=== PATIENT | male | born 1960 | race Hispanic/Latino ===

== ENCOUNTER 2020-06-06 00:23 | Inpatient (IN) | payer OTHER ==
[2020-06-06] VITALS (12 sets, daily range): BP systolic 114–153; BP diastolic 60–92
[~2020-06-06] VITALS: Ht 172.7 cm; Wt 87.2 kg
[~2020-06-06 00:23] MED LIST: ZOCOR20 M1 PO
--- NOTE | 2020-06-06 00:23 | NUR ---
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 TOOK NO MEDS TONIGHT
[2020-06-06 01:19] LABS: HEMATOCRIT 41.6 % (39.0-50.0); HEMOGLOBIN 13.9 g/dl (14.0-18.0); IMMATURE GRANULOCYTES 0.5 % (0.0-5.0); MEAN CELL VOLUME 97.4 fL CALC (80.0-100.0); MEAN CORPUSCULAR HGB 32.6 pG CALC (26.0-32.0); MEAN CORPUSCULAR HGB CONC 33.4 g/dL CAL (32.0-36.0); NEUT# 6.84 thou/uL (1.82-7.42); RED BLOOD COUNT 4.27 mill/uL (4.70-6.10); RED CELL DISTRI WIDTH 13.2 % (11.5-15.5)
[2020-06-06 01:41] LABS: INTERNATIONAL NORMALIZED RATIO 0.9 RATIO (0.7-1.3); PROTHROMBIN TIME 9.1 SECONDS (9.0-12.5)
[2020-06-06 01:47] LABS: ALBUMIN 3.7 g/dL (3.2-5.0); ANION GAP 14 (6-22 (CALC)); BILIRUBIN, TOTAL 0.8 mg/dL (0.0-1.4); BUN 14 mg/dL (9-20); BUN/CREATININE RATIO 11 (12-20 (CALC)); CARBON DIOXIDE 23 mmol/l (22-30); CHLORIDE 100 mmol/l (95-108); CREATININE 1.3 mg/dL (0.7-1.3); GFR 56 ML/MIN (>=60 (CALC)); GFR FOR AFR.AMER. > 60 ML/MIN (>=60 (CALC)); POTASSIUM 4.5 mmol/l (3.5-5.1); SODIUM 133 mmol/l (137-146)
--- NOTE | 2020-06-06 01:48 | NUR ---
MEDICATED FOR FEVER COUGH AND SOB
[2020-06-06 01:50] LABS: ALKALINE PHOSPHATASE 128 u/l (38-126); SGOT/AST 175 u/l (17-59)
--- NOTE | 2020-06-06 02:41 | NUR ---
FEVER IS RESOLVING SR NO ECTOPY NO DYSPNEA.
--- NOTE | 2020-06-06 03:31 | NUR ---
FEEVER HAS RESOLVED.REG RATE UNLABORED RESP EFFORT NO COUGH NO CONGESTION
--- NOTE | 2020-06-06 04:30 | NUR ---
[T TELLS ME HE BREATHES WITH GREATER EASE.SR NO SWEATS W/D SKIN IVPB ABX COMPLETED
--- NOTE | 2020-06-06 05:24 | NUR ---
PT TRANSFERRED TO HOSP BED.W//D SKIN SR NO TACHYCAARDIA NO ST CHANGES.
--- NOTE | 2020-06-06 05:45 | NUR ---
PT PRONATED IN BED SR NO SOB/DYSPNEA.NO COUGH.
--- NOTE | 2020-06-06 10:00 | NUR ---
recieved for care. Sleeping.
--- NOTE | 2020-06-06 11:00 | NUR ---
PATIENT SITTING AT BEDSIDE STATES HE FEELS IF SOMETHING IS CAUGHT IN HIS THROAT AND IS UNABLE TO BREATH. O2 VIA NC AT 3LPM. SATURATION 93%.
--- NOTE | 2020-06-06 11:00 | NUR ---
patient awake,seated at bedside. c/o THAT HE IS UNABLE TO BREATH. O2 VIA NC CONTINUES AT 3LPM.PATIENT COUGHING. REASSURANCE GIVEN. V/S STABLE.
--- NOTE | 2020-06-06 11:10 | NUR ---
PATIENT ENCOURAGED TO DEEP BREATH AND COUGH. RESPIRATORY CALLED TO EVALUATE.
--- NOTE | 2020-06-06 11:20 | NUR ---
RT CALLED TO COME TO BEDSIDE TO EVALUATE.
--- NOTE | 2020-06-06 11:30 | NUR ---
RT AT BEDSIDE TO EVALUATE.
--- NOTE | 2020-06-06 11:30 | NUR ---
RT AT BEDSIDE.
--- NOTE | 2020-06-06 12:42 | NUR ---
PATIENT DOING WELL. EATING MEAL TRAY. LESS ANXIOUS. SATURATIONS LOW 90'S.
--- NOTE | 2020-06-06 13:43 | NUR ---
PATIENT RESTING QUIETLY, NO C/O AT THIS TIME.
--- NOTE | 2020-06-06 14:49 | NUR ---
PATIENTS TO ENTRANCE FOR UPDATE AND TO DROP OFF PERSONAL EFFECTS.
--- NOTE | 2020-06-06 16:10 | NUR ---
RECIEVED REPORT FROM MIGDALIA AGUAYO.
--- NOTE | 2020-06-06 16:12 | NUR ---
PT ARRIVED TO [facility] ROOM 283 VIA BED ACCOMPAINED BY ER STAFF. PT AMBULATING TO BATHROOM WITH STEADY AGAIT.
--- NOTE | 2020-06-06 16:15 | NUR ---
REPORT TO MARIANELA NURSE IN SBAR FORMAT. TO [facility] ROOM 283 VIA BED. STABLE UPON ARRIVAL.
--- NOTE | 2020-06-06 16:19 | NUR ---
REPORT TO MARIANELA NURSE IN SBAR FORMAT. TRANSFERRED TO FLOOR ROOM 283 VIA BED, STABLE UPON ARRIVAL, IV INTACT
--- NOTE | 2020-06-06 16:20 | NUR ---
INTRODUCED SELF TO PT AND DISCUSSED POC.PT IS A/O X3. ASSESSMENT AND VITAKLS COMPLETED. BP , HR, O2 86 % ON 3L NC. INCREASED OXYGEN TO 13L HIGH FLOW, SAT 91-93%. RESPIRATIONS ARE SHALLOW. LUNG SOUNDS ARE DIMINISHED. HEART RHYTHM IS NORMAL. BOWEL SOUNDS ARE ACTIVE. RADIAL AND PEDAL PULSES ARE STRONG. #18 IN LAC FLUSHED, SITE APPEARS HEALTHY AND PATENT. SKIN IS COOL AND INTACT WITH NO BREAKDOWN NEED. I.S AT BEDSIDE, PT EDUCATED ON USE. PT VERBLAIZED UNDERSTANDING. PT DENIES OF ANY ALLERGIES OR PAST MEDICAL HISTORY. ALLERGY BAND AND FALL RISK BAND IN PLACE. PT ORIENETED TO ROOM AND CALL LIGHT SYSTEM. PT VERBALIZED UNDERSTANDING. ALL SAFETY PRECAUTIONS ARE IN PLACE WIHT CALL LIGHT IN REACH. WILL CONTINUE TO MONITOR.
[2020-06-06 16:38] LABS: URINE BILIRUBIN - DIPSTICK NEGATIVE (NEGATIVE); URINE BLOOD DIPSTICK NEGATIVE (NEGATIVE); URINE COLOR ORANGE; URINE GLUCOSE - DIPSTICK NEGATIVE (NEGATIVE); URINE KETONE NEGATIVE (NEGATIVE); URINE LEUK ESTERASE NEGATIVE (NEGATIVE); URINE NITRITE - DIPSTICK NEGATIVE (Negative); URINE PROTEIN - DIPSTICK 100 mg/dL (NEG-TRACE); URINE SPECIFIC GRAVITY >=1.030
--- NOTE | 2020-06-06 16:40 | NUR ---
RT CALLED TO ASSESS PT O2 STATUS
[2020-06-06 17:06] LABS: URINE BACTERIA FEW hpf; URINE RBC 0-2 RBC/hpf (0-5); URINE SQUAMOUS EPITHELIAL CELL FEW EPI/hpf (0-FEW)
--- NOTE | 2020-06-06 17:10 | NUR ---
RT AT BEDSIDE
--- NOTE | 2020-06-06 17:32 | NUR ---
DR JON CALLED ABOUT PT O2 REQUIREMENT. ORDERED TO PRON PT FOR 30 MIN AND MONITOR O2 SAT.
--- NOTE | 2020-06-06 18:06 | NUR ---
PT PLACED IN PRONE POSITION. OXYGEN DECREASED TO 7L HIGH FLOW NC O2 SAT 95%.PT STATES " IT FEELS A LITTLE BETTER". DR JON NOTFIED OF OXYGEN STATUS. NEW ORDER FOR ROBITUSSIN TO ASSIST WITH COUGH. ENCOURAGED PT TO CALL IF FEELING INCREASED SOB OR UNABLE TO LAY PRONE. PT VERBALIZED UNDERSTANDING. ALL SAEFTY PRECAUTIONS ARE IN PLACE WITH CALL LIGHT IN REACH. WILL CONTINUE TO MONITOR.
--- NOTE | 2020-06-06 20:00 | NUR ---
PT STATES " I CAN NOT DO THIS ANY MORE." PT REFUSES TO PRONE. PT PLACED IN HIGH FOLWERS POSITION, O2 SAT 93% ON 14L HIGH FLOW NC. NOTIFIED. TO BE TRANSFERED TO ICU.
--- NOTE | 2020-06-06 20:14 | NUR ---
PT TRANSFERED TO ICU BED 5. REPORT GIVEN TO KATHLEEN Bruce RN.
--- NOTE | 2020-06-06 20:15 | NUR ---
REPORT RECEIVED FROM MARIANELA ALEXANDER. CARE ASSUMED.
--- NOTE | 2020-06-06 20:45 | NUR ---
PT RESTING IN BED AWAKE. PT IS ALERT AND ORIENTED X3. SHIFT ASSESSMENT COMPLETED AT THIS TIME. IV PATENT X1. PT DOES VERBALIZE BEING SCARED. REASSURANCE PROVIDED. PT ON VAPOTHERM INITIATED BY RT. CALL LIGHT IN REACH. WILL CONTINUE TO MOITOR.
--- NOTE | 2020-06-06 21:30 | NUR ---
S/O ON PHONE ONLY UPPER SORBIAN SPEAKING. TRANSFERRED CALL INTO PT ROOM WITH PORTABLE. REASSURANCE PROVIDED.
--- NOTE | 2020-06-06 22:15 | NUR ---
PT RESTING IN BED WATCHING TV. VSS ON MONITOR. CALL LIGHT IN REACH. WILL CONTINUE TO NONITOR.
--- NOTE | 2020-06-06 23:50 | NUR ---
PT PROJECT ENGINEER LIGHT STATING THAT HE IS UNABLE TO BREATHE O2 SATS 94% ON VAPOTHERM. PT IS TACHYPNEIC AND DIAPHORETIC. PT STATES THAT HE IS HOT. FAN PROVIDED. COOL CLOTH PROVIDED. CPUGH MEDICATION PROVIDED PER JUL. REASSURANCE PROVIDED. WILL CONTINUE TO MONITOR CLOSELY
[2020-06-07] VITALS (18 sets, daily range): BP systolic 100–147; BP diastolic 64–81
--- NOTE | 2020-06-07 00:10 | NUR ---
PT NOTED TO HAVE O2 SATS 90%. RT AT BEDSIDE TO ADJUST VAPOTHERM PT NOW AT 80% FIO2 AND 35L.
--- NOTE | 2020-06-07 02:04 | NUR ---
PT RESTING INBED WITH EYES CLOSED. RESP ARE EVEN AND UNLABORED. NO DISTRESS NOTED. CALL LIGHT IN REACH. WILL CONTINUE TO MONITOR.
--- NOTE | 2020-06-07 03:58 | NUR ---
PT RESTING IN BED WITH EYES CLOSED. RESP ARE EVEN AND UNLABORED. NO DISTRESS NOTED. CALL LIGHT IN REACH. WILL CONTINUE OT MONITOR
--- NOTE | 2020-06-07 04:29 | NUR ---
LAB AT BEDSIDE AT THIS TIME.
[2020-06-07 05:30] LABS: HEMOGLOBIN 13.8 g/dl (14.0-18.0); IMMATURE GRANULOCYTES 0.6 % (0.0-5.0); MEAN CELL VOLUME 97.9 fL CALC (80.0-100.0); MEAN CORPUSCULAR HGB 32.2 pG CALC (26.0-32.0); MEAN CORPUSCULAR HGB CONC 32.9 g/dL CAL (32.0-36.0); NEUT# 9.21 thou/uL (1.82-7.42); RED BLOOD COUNT 4.29 mill/uL (4.70-6.10); RED CELL DISTRI WIDTH 13.2 % (11.5-15.5)
--- NOTE | 2020-06-07 05:54 | NUR ---
PT RESTING IN BED WITH EYES CLOSED. VSS ON MONITOR. CALLLIGHT IN REACH. WILL CONTINUE TO MONITOR.
[2020-06-07 06:03] LABS: ALBUMIN 3.3 g/dL (3.2-5.0); ALKALINE PHOSPHATASE 109 u/l (38-126); BILIRUBIN, TOTAL 0.6 mg/dL (0.0-1.4); BUN 22 mg/dL (9-20); BUN/CREATININE RATIO 21 (12-20 (CALC)); CARBON DIOXIDE 27 mmol/l (22-30); CHLORIDE 101 mmol/l (95-108); GFR > 60 ML/MIN (>=60 (CALC)); GFR FOR AFR.AMER. > 60 ML/MIN (>=60 (CALC)); SGOT/AST 91 u/l (17-59); SODIUM 136 mmol/l (137-146); TOTAL PROTEIN 7.1 g/dL (6.3-8.2)
[2020-06-07 06:07] LABS: ANION GAP 13 (6-22 (CALC)); POTASSIUM 5.2 mmol/l (3.5-5.1)
[2020-06-07 06:23] LABS: C-REACTIVE PROTEIN 15.3 mg/dL (0-0.9)
--- NOTE | 2020-06-07 07:45 | NUR ---
PATIENT LAYS IN HIGH YUAN'S, IS AWAKE, ORIENTED X4. ON VAPOTHERM 35 L/MIN AND 80% FIO2. SLIGHT SOB WITH EXERTION. NURSE ASSESSMENT PERFORMED. DR WRIGHT IN ROOM WELL TO ASSESS AND EXPLAIN POC. IV X1 INTACT, FLUSHES PROPERLY, SALINE LOCKED. NO COMPLAINTS OF PAIN OR NEEDS AT THIS TIME. SR ON TELEMETRY. BP WNL. O2 SAT 98%. CALL LIGHT WITHIN REACH. SET UP FOR BREAKFAST.
--- NOTE | 2020-06-07 08:31 | NUR ---
PATIENT'S CALLED HERE. WAS YELLING THROUGH THE PHONE, WAS UPSET, SHE REPORTS SHE HAS NOT BEEN ABLE TO GET UPDATES ON HER , THERE IS NOT ANYBODY THAT SPEAKS SYRIAN, SHE HAS NOT BEEN ABLE TO TALK TO RAMON ON HIS CELLPHONE BECAUSE HE HAS NO WEB APPLICATIONS DEVELOPER. I UPDATED HER ON PATIENT STATUS WELL POC, LET HER KNOW WE WILL LOOK FOR HIS WEB APPLICATIONS DEVELOPER. ALSO NOTIFIED HER IF WE ARE NOT ABLE TO ANSWER THE PHONE IT IS BECAUSE WE ARE IN PATIENT'S ROOMS PROVIDING CARE. CALMED DOWN AND GAVE THANKS.
--- NOTE | 2020-06-07 09:38 | NUR ---
PATIENT ASSISTED TO LAY PRONE. NO ACUTE DISTRESS SHOWN.
--- NOTE | 2020-06-07 10:50 | NUR ---
PATIENT WAS UP TO USE URINAL. NOW LAYING BACK IN PRONE POSITION.
--- NOTE | 2020-06-07 13:21 | NUR ---
PATIENT ASSISTED TO SIT ON SIDE OF BED TO EAT LUNCH. O2 SAT SITTING DOWN 95%-96%, REPORTS SLIGHT SOB. ALSO ENCOURAGED AND EDUCATED ON IS, CORRECTLY DEMONSTRATED BACK HOW TO USE IT. CALL LIGHT WITHIN REACH.
--- NOTE | 2020-06-07 15:02 | NUR ---
PATIENT LAYS ON HIS RIGHT SIDE. NO ACUTE DISTRESS SHOWN. REMDESEVIR INFUSING NOW. CALL LIGHT WITHIN REACH.
--- NOTE | 2020-06-07 15:51 | NUR ---
PATIENT'S CALLED HERE, UPDATES GIVEN.
--- NOTE | 2020-06-07 16:26 | NUR ---
PATIENT ASSURANCE MANAGER LIGHT, COMPLAINS OF SWEATING AND HE CANNOT BREATHE, O2 SATS 94%, PATIENT REASSURED. GOWN CHANGED, WAS ABLE TO CALM DOWN. USES URINAL, PURSED LIP BREATHING ENCOURAGED. NOW LAYS ON HIS RIGHT SIDE.
--- NOTE | 2020-06-07 18:25 | NUR ---
PATIENT SITS UP ON SIDE OF BED TO EAT. O2 SAT 96%.
--- NOTE | 2020-06-07 20:00 | NUR ---
awake. no acute resp distress. o2 cont per 35 l/m 80% per vapotherm. technical architect shows sinus rhythm hr 64. #18 lac saline lock. po fluids encouraged. voids per urinal. spoke to pt @ length about prone position but doesn't want to @ present. incentive spirometer encouraged. fall & air/contact precautions cont.
--- NOTE | 2020-06-07 22:00 | NUR ---
awake. no c/o voiced. o2 cont. cont to lay on rt side. has not proned as yet this shift.
[2020-06-08] VITALS (19 sets, daily range): BP systolic 95–134; BP diastolic 37–83
--- NOTE | 2020-06-08 00:01 | NUR ---
awake freq. requires A LOT of attention. has numerous NEEDS & requests. "my oxygen is off. i can't take it anymore." oxygen secured. "is the blood pressure right?" pt referring to bp cuff. pt reassured. "there's not enough sticky." extra tape secured to pulse oximetry. has not been in the prone position yet this shift.
--- NOTE | 2020-06-08 02:00 | NUR ---
resting quietly. nad. o2 cont. bladder trimmer shows sinus brian hr 50.
--- NOTE | 2020-06-08 04:00 | NUR ---
eyes closed. no distress. geospatial specialist shows sinus brian hr 48.
--- NOTE | 2020-06-08 05:46 | NUR ---
resting quietly. no distress. vapotherm cont.
--- NOTE | 2020-06-08 05:50 | NUR ---
lab here. blood drawn.
[2020-06-08 06:50] LABS: HEMATOCRIT 44.2 % (39.0-50.0); HEMOGLOBIN 14.5 g/dl (14.0-18.0); MEAN CELL VOLUME 97.8 fL CALC (80.0-100.0); MEAN CORPUSCULAR HGB 32.1 pG CALC (26.0-32.0); MEAN CORPUSCULAR HGB CONC 32.8 g/dL CAL (32.0-36.0); RED BLOOD COUNT 4.52 mill/uL (4.70-6.10); RED CELL DISTRI WIDTH 12.9 % (11.5-15.5)
[2020-06-08 07:20] LABS: ALBUMIN 3.1 g/dL (3.2-5.0); ALKALINE PHOSPHATASE 95 u/l (38-126); ANION GAP 14 (6-22 (CALC)); BILIRUBIN, TOTAL 0.5 mg/dL (0.0-1.4); BUN 28 mg/dL (9-20); BUN/CREATININE RATIO 29 (12-20 (CALC)); CARBON DIOXIDE 25 mmol/l (22-30); CHLORIDE 102 mmol/l (95-108); GFR > 60 ML/MIN (>=60 (CALC)); GFR FOR AFR.AMER. > 60 ML/MIN (>=60 (CALC)); MAGNESIUM 2.3 mg/dL (1.6-2.3); POTASSIUM 5.1 mmol/l (3.5-5.1); SGOT/AST 79 u/l (17-59); SODIUM 136 mmol/l (137-146); TOTAL PROTEIN 6.8 g/dL (6.3-8.2)
--- NOTE | 2020-06-08 07:55 | NUR ---
PATIENT LAYS SUPINE. AWAKE, ORIENTED X4. WAS UPSET BECAUSE HIS PHONE FELL TO THE FLOOR AND HIS WAS CALLING HIM, HE WAS ABLE TO TALK TO HER. NURSE ASSESSMNET PERFORMED, SEE CHARTING DOCUMENTATION. POC DISCUSSED. IV X1 INTACT. DAVID HOSE ON. PLACED IN HIGH YUAN'S. SR ON TELEMETRY. ON VAPOTHERM 35 L AND 80%, O2 SAT GREATER THAN 95%. CALL LIGHT WITHIN REACH.
--- NOTE | 2020-06-08 08:11 | NUR ---
RETURNED THE CALL BACK TO PATIENT'S , UPDATED HER ON PATIENT'S STATUS AND CURRENT POC.
--- NOTE | 2020-06-08 08:11 | NUR ---
Patient is screened for PT intervention and no needs are identified at this time
--- NOTE | 2020-06-08 09:35 | NUR ---
PATIENT ABLE TO SWALLOW MEDICATIONS, USES INCENTIVE SPIROMETER, REACHES TO 1000 ML WITH A GOAL OF 1500ML. DOES REPORT HE BECOMES SOB WITH EATING HIS BREAKFAST. WILL CONTINUE TO MONITOR.
--- NOTE | 2020-06-08 10:22 | NUR ---
PATIENT NOW LAYING PRONE.
--- NOTE | 2020-06-08 12:48 | NUR ---
PATIENT ASSISTED TO SIT UP ON SIDE OF BED TO EAT HIS LUNCH. LAC IV REINFORCED WITH TAPE.
--- NOTE | 2020-06-08 13:54 | NUR ---
FIO2 ON VAPOTHERM CHANGED TO 60%, PATIENT 96% SATS WHILE WASHING HIMSELF UP. NOW BRUSHING HIS TEETH. BED LINENS CHANGED. SITS IN RECLINER. NO COMPLAINTS. CALL LIGHT WITHIN REACH.
--- NOTE | 2020-06-08 13:58 | NUR ---
DECREASED FIO2 DOWN TO 60%. PT TOLERATING WELL. RN AWARE
--- NOTE | 2020-06-08 15:38 | NUR ---
PATIENT'S CALLED HERE AND PROVIDED CODE. UPDATES GIVEN.
--- NOTE | 2020-06-08 16:12 | NUR ---
RT IN ROOM TO PLACE PATIENT ON HIGH FLOW NC AT 15 L/MIN AFTER WEANING VAPOTHERM AND PATIENT'S O2 SAT 97%. NO ACUTE DISTRESS SHOWN.
--- NOTE | 2020-06-08 16:21 | NUR ---
PLACED PT ON 10L HFNC SPO2 99%. PT TOLERATING WELL. MIGDALIA ABERNATHY
--- NOTE | 2020-06-08 18:31 | NUR ---
PATIENT CONTINUES TO SIT IN RECLINER, IS ON HIS PHONE. NO ACUTE DISTRESS SHOWN.
--- NOTE | 2020-06-08 19:20 | NUR ---
sitting in bedside chair. denies distress. o2 cont 10 l/m high flow. shipyard painter helper shows sinus rhythm hr 74. #18 lac saline lock. po fluids taken well. voids per urinal. fall & air/contact precautions cont.
--- NOTE | 2020-06-08 21:00 | NUR ---
assisted to bed. idalmis well.
[2020-06-09] VITALS (16 sets, daily range): BP systolic 86–140; BP diastolic 52–80
--- NOTE | 2020-06-09 00:01 | NUR ---
eyes closed. no distress. strategic account director shows sinus brian hr 54.
--- NOTE | 2020-06-09 02:00 | NUR ---
resting quietly. resps even & unlabored. nuclear monitoring technician shows sinus brian hr 56.
--- NOTE | 2020-06-09 04:00 | NUR ---
eyes closed. nad. o2 cont per high flow nc.
--- NOTE | 2020-06-09 06:00 | NUR ---
no acute change in condition. no resp distress this shift.
[2020-06-09 06:21] LABS: HEMATOCRIT 41.8 % (39.0-50.0); HEMOGLOBIN 13.9 g/dl (14.0-18.0); IMMATURE GRANULOCYTES 0.4 % (0.0-5.0); MEAN CELL VOLUME 98.1 fL CALC (80.0-100.0); MEAN CORPUSCULAR HGB 32.6 pG CALC (26.0-32.0); MEAN CORPUSCULAR HGB CONC 33.3 g/dL CAL (32.0-36.0); NEUT# 5.86 thou/uL (1.82-7.42); RED BLOOD COUNT 4.26 mill/uL (4.70-6.10)
--- NOTE | 2020-06-09 06:32 | NUR ---
VAPOTHERM STANDBY. PT ON 10L HFNC
[2020-06-09 07:02] LABS: ALBUMIN 2.8 g/dL (3.2-5.0); ALKALINE PHOSPHATASE 91 u/l (38-126); ANION GAP 12 (6-22 (CALC)); BILIRUBIN, TOTAL 0.5 mg/dL (0.0-1.4); BUN 29 mg/dL (9-20); BUN/CREATININE RATIO 32 (12-20 (CALC)); C-REACTIVE PROTEIN 3.5 mg/dL (0-0.9); CARBON DIOXIDE 26 mmol/l (22-30); CHLORIDE 104 mmol/l (95-108); CREATININE 0.9 mg/dL (0.7-1.3); GFR > 60 ML/MIN (>=60 (CALC)); GFR FOR AFR.AMER. > 60 ML/MIN (>=60 (CALC)); POTASSIUM 4.8 mmol/l (3.5-5.1); SGOT/AST 98 u/l (17-59); SODIUM 136 mmol/l (137-146); TOTAL PROTEIN 6.3 g/dL (6.3-8.2)
--- NOTE | 2020-06-09 08:00 | NUR ---
PATIENT LAYS ON RIGHT SIDE, ENCOURAGED TO SIT ON SIDE OF BED TO EAT HIS BREAKFAST. REPORTS HE HAD A BAD NIGHT DUE TO COUGHING ALL NIGHT. IS ON HIGH FLOW NC AT 10 L/MIN H., O2 SAT 93%. SR ON TELEMETRY. NURSE ASSESSMENT PERFORMED. POC DISCUSSED. IV X1 INTACT. URINAL AT BEDSIDE. BP WNL. CALL LIGHT WITHIN REACH.
--- NOTE | 2020-06-09 08:18 | NUR ---
COUGH MEDICATION PROVIDED.
--- NOTE | 2020-06-09 09:10 | NUR ---
PATIENT'S CALLED HERE FOR UPDATES, UPDATES GIVEN.
--- NOTE | 2020-06-09 09:54 | NUR ---
PATIENT ASSISTED TO LAY PRONE. REPORTS COUGH MEDICATION DID HELP WITH HIS COUGH. O2 SAT 93% ON 10 L/MIN HIGH FLOW.
--- NOTE | 2020-06-09 12:19 | NUR ---
PATIENT SITS ON SIDE OF BED FOR LUNCH, NO ACUTE DISTRESS SHOWN.
--- NOTE | 2020-06-09 12:50 | NUR ---
PATIENT'S PULSE OXIMETER WAS REPLACED, O2 SAT 94%.
--- NOTE | 2020-06-09 13:15 | NUR ---
PATIENT'S CALLED HERE FOR UPDATES, UPDATES GIVEN.
--- NOTE | 2020-06-09 13:46 | NUR ---
O2 SAT WHEN ON 10 L/MIN IS 99%-100%. O2 WEANED TO 7 L/MIN, O2 SAT READS 98%.
--- NOTE | 2020-06-09 14:31 | NUR ---
PATIENT ASSISTED TO SIT ON RECLINER, WAS ENCOURAGED TO SIT ON RECLINER. O2 SAT 87% WHEN COUGHING AND BECAME SOB. PURSED LIP BREATHING ENCOURAGED. CALL LIGHT WITHIN REACH.
--- NOTE | 2020-06-09 19:27 | NUR ---
RECEIVED REPORT FOR THIS PT AND SITTING UP IN CHAIR AT BEDSIDE WITH NO S/S OF DISTRESS NOTED. ABLE TO MAKE NEEDS KNOWN. CONTINUES ON HIGH FLOW OXYGEN AT 7LNC WITH NO COMPLICATIONS NOTED. CALL LIGHT WITHIN REACH. WILL CONTINUE TO OBSERVE.
--- NOTE | 2020-06-09 21:00 | NUR ---
PT IS IN BED WITH EYES CLOSED. RESPIRATIONS EVEN AND NON LABORED WITH SOB ON EXERTION. PT IS ALERT AND ORIENTED AND ABLE TO MAKE NEEDS KNOWN. PT HAS NON PRODUCTIVE COUGH AND ROBITUSSIN AC GIVEN PRESCRIBED AND TOLERATED WELL. CONTINENT OF B/B AND USES URINAL AT BEDSIDE. CONTINUES ON LOVENOX THERAPY WITH NO S/S OF BLEEDING OR HEMORRHAGE. FLUID INTAKE GOOD AND NO COMPLICATIONS WITH SWALLOWING NOTED. OXYGEN THERAPY AT 7L HIGH FLOW AND O2SAT 92%. OXYGEN LEVEL TENDS TO DROP WHEN PT HAS COUGHING SPELL. BED IS IN LOW POSITION AND CALL LIGHT IS WITHIN REACH. PT WAS EDUCATED TO LIE IN PRONE POSITION TO FACILITATE BREATHING AND HE STATES HE UNDERSTANDS. WILL CONTINUE TO OBSERVE.
[2020-06-10] VITALS (15 sets, daily range): BP systolic 94–119; BP diastolic 56–74
--- NOTE | 2020-06-10 02:20 | NUR ---
PT IN BED WITH EYES CLOSED. NO S/S OF DISTRESS NOTED. HOB ELEVATED AND CALL LIGHT WITHIN REACH. WILL CONTINUE TO OBSERVE.
--- NOTE | 2020-06-10 06:37 | NUR ---
PT IN BED WITH EYES CLOSED AND EASILY AROUSED. ABLE TO VERBALIZE NEEDS AND WANTS. PT STATES HE WAS COUGHING THROUGHOUT THE NIGHT A NON PRODUCTIVE COUGH. JORYSIN GIVEN THIS AM AND TOLERATED WELL. CONTINUES ON IV ABT THERAPY WITH NO ADVERSE SIDE EFFECTS. UP AD LUIS M. CALL LIGHT IS WITHIN REACH. WILL CONTINUE TO OBSERVE.
--- NOTE | 2020-06-10 07:00 | NUR ---
RECIEVED REPORT FROM MIGDALIA YBARRA. PT SLEEPING IN SEMI FOWLERS POSTION. RESPIRAITONS ARE EVEN AND UNLABROED ON 7L HIGH FLOW NC. NO SIGNS OF ANY DISTRESS. WILL CONTINUE TO MONITOR
--- NOTE | 2020-06-10 08:20 | NUR ---
PT RESTING IN SEMI FOWLERS POSITION UPON ENTERING ROOM. INTRODUCED SELF TO PT AND DISCUSSED POC. PT IS A/O X3. RESPIRATIONS ARE EVEN AND UNLABORED ON 7L HIGH FLOW. O2 SAT 92%. PRODUCTIVE COUGH NOTED. HEART RHYTHM NORMAL. BOWEL SOUNDS ARE ACTIVE. RADIAL AND PEDAL PULSES ARE STRONG. #18G IN LAC FLUSHED, SITE APPEARS HEALTHY AND PATENT. SKIN IS WARM AND INATCT. PT DENIES OF ANY PAINS OR DISCOMFORTS. I.S AT BEDSIDE. PT DEMISTRATED, REACH 1500. PT INSTRUCTED ON USGAGE 10 TIME PER HOUR. PT VERBLAIZED UNDERSTANDING. PT DENIES OF ANY OTHER PAINS OR DISCOMFORTS. ALL SAFETY PRECAUTIONS ARE IN PLACE. WITH CALL LIGHT IN REACH. AIR/CONTACT PRECAUTIONS IN PLACE. WILL CONTINUE TO MONITOR.
--- NOTE | 2020-06-10 08:28 | NUR ---
DR WRIGHT AT BEDSIDE
--- NOTE | 2020-06-10 10:40 | NUR ---
PT AT BEDSIDE
--- NOTE | 2020-06-10 10:48 | NUR ---
Patient is screened for intervention and may benefit from consult if medical agrees
--- NOTE | 2020-06-10 12:25 | NUR ---
NEW #20G STARTED IN RAC. #18G IN LAC REMOVED WITH CATAHTER STILL INTACT. PT TOLERATED WELL. PT ASSITED INTO CHAIR. SOB ON EXCERTION NOTED. PT DENIES OF ANY PAINS OR DISCOMFORTS AT THIS TIME. ALL SAEFTY PRECAUTIONS ARE IN PLACE WITH CALL LIGHT IN REACH. AIR/CONTACT PRECAUTIONS IN PLACE. WILL CONTINUE TO MONITOR
--- NOTE | 2020-06-10 14:48 | NUR ---
PT SLEEPING IN PRONE POSITION. RESPIRAITONS ARE EVEN AND UNLABORED ON 7L HIGH FOLWERS.NO SIGNS OF ANY PAINS OR DISCOMFORTS. ALL SAFTEY PRECAUTIONS ARE IN PLACE. WILL CONTINUE TO MONITOR
--- NOTE | 2020-06-10 16:04 | NUR ---
PT SLEEPING IN SEMI FOWLERS POSITION. RESPIRATIONS ARE EVEN AND UNLABORED ON 7L HIGH FLOW. NO SIGNS OF ANY PAINS OR DISCOMFORTS AT THIS TIME. ALL SAFETY PRECAUTIONS ARE IN PLACE WITH CALL LIGHT IN REACH. AIR/CONTACT PRECAUTIONS ARE IN PLACE WITH CALL LIGHT IN REACH. WILL CONTINUE TO MONITOR.
--- NOTE | 2020-06-10 19:00 | NUR ---
REPORT RECEIVED FROM Lester RIOS LPN, CARE OF PT ASSUMED AT THIS TIME.
--- NOTE | 2020-06-10 20:10 | NUR ---
PT SITTING UP IN BED TALKING ON PHONE. RESPIRATIONS REGULAR AND UNLABORED ON 02 AT 7L/MIN VIA HIGH FLOW NC. PT PASSES PHONE TO THIS NURSE AND REQUEST UPDATE TO BE PROVIDED TO HIS SPOUSE. UPDATES PROVIDED TO SPOUSE ON PT'S STATUS. PT'S SPOUSE DENIES FURTHER QUESTIONS AND VERBALIZES UNDERSTANDING. PHYSICAL ASSESMENT COMPLETE. PLAN OF CARE REVIEWED, PT VERBALIZES UNDERSTANDING AND DENIES QUESTIONS. PT DENIES NEEDS AT THIS TIME. CALL WHEELER WITHIN REACH, AGREES TO CALL PRN.
--- NOTE | 2020-06-10 21:58 | NUR ---
SCHEDULED MEDICATIONS ADMINISTERED BY Madan MARIE LPN, SEE E-MAR.
[2020-06-11] VITALS (8 sets, daily range): BP systolic 82–111; BP diastolic 59–68
--- NOTE | 2020-06-11 | NUR ---
PT LAYING IN BED WITH EYES CLOSED, APPEARS TO BE SLEEPING COMFORTABLY, RESPIRATIONS REGULAR AND UNLABORED, CALL WHEELER REMAINS WITHIN REACH.
--- NOTE | 2020-06-11 02:00 | NUR ---
PT LAYING IN BED WITH EYES CLOSED, APPEARS TO BE SLEEPING COMFORTABLY, RESPIRATIONS REGULAR AND UNLABORED, CALL WHEELER REMAINS WITHIN REACH.
--- NOTE | 2020-06-11 04:00 | NUR ---
PT LAYING IN BED WITH EYES CLOSED, APPEARS TO BE SLEEPING COMFORTABLY, RESPIRATIONS REGULAR AND UNLABORED, CALL WHEELER REMAINS WITHIN REACH.
[2020-06-11 05:57] LABS: HEMATOCRIT 41.6 % (39.0-50.0); HEMOGLOBIN 13.9 g/dl (14.0-18.0); IMMATURE GRANULOCYTES 1.3 % (0.0-5.0); MEAN CELL VOLUME 96.7 fL CALC (80.0-100.0); MEAN CORPUSCULAR HGB 32.3 pG CALC (26.0-32.0); MEAN CORPUSCULAR HGB CONC 33.4 g/dL CAL (32.0-36.0); NEUT# 3.97 thou/uL (1.82-7.42); RED BLOOD COUNT 4.3 mill/uL (4.70-6.10); RED CELL DISTRI WIDTH 12.7 % (11.5-15.5)
[2020-06-11 06:25] LABS: ALBUMIN 2.7 g/dL (3.2-5.0); ALKALINE PHOSPHATASE 79 u/l (38-126); ANION GAP 10 (6-22 (CALC)); BILIRUBIN, TOTAL 0.7 mg/dL (0.0-1.4); BUN 23 mg/dL (9-20); BUN/CREATININE RATIO 27 (12-20 (CALC)); CARBON DIOXIDE 27 mmol/l (22-30); CHLORIDE 101 mmol/l (95-108); CREATININE 0.8 mg/dL (0.7-1.3); GFR > 60 ML/MIN (>=60 (CALC)); GFR FOR AFR.AMER. > 60 ML/MIN (>=60 (CALC)); POTASSIUM 4.7 mmol/l (3.5-5.1); SGOT/AST 42 u/l (17-59); SODIUM 133 mmol/l (137-146); TOTAL PROTEIN 6.1 g/dL (6.3-8.2)
[2020-06-11 06:45] LABS: C-REACTIVE PROTEIN 12.9 mg/dL (0-0.9)
--- NOTE | 2020-06-11 09:54 | NUR ---
PATIENT ABLE TO SWALLOW HIS MEDICATIONS WITH NO DIFFICULTY. COMPLAINS OF FEELING WEAK TODAY, LAYS IN PRONE POSITION NOW, O2 ON NC 5 L/MIN 94% WHEN PRONE, IF SITTING 89%. DOES HAVE RESEARCH AND INSIGHTS EXECUTIVE COUGH. NURSE ASSESSMENT PERFORMED.
--- NOTE | 2020-06-11 14:45 | NUR ---
PATIENT'S CALLED HERE, GAVE CODE. UPDATES GIVEN
--- NOTE | 2020-06-11 14:48 | NUR ---
PATIENT LAYS AUPINE, TALKS ON PHONE. O2 SAT 97%. ON 5 L/MIN NC. NO ACUTE DISTRESS SHOWN
--- NOTE | 2020-06-11 18:06 | NUR ---
HIGH FLOW NC AT 5 L/MIN WEANED TO 3 L/MIN, O2 SAT SITTING DOWN 92%
--- NOTE | 2020-06-11 19:30 | NUR ---
awake. laying on rt side. o2 cont 3 l/m per nc. phototypesetting equipment monitor shows sinus rhythm hr 64. #20 rac saline lock. po fluids taken well. voids per urinal. fall & air/contact precautions cont.
--- NOTE | 2020-06-11 22:00 | NUR ---
eyes closed. no distress. nuclear monitoring technician shows sinus rhythm hr 68.
--- NOTE | 2020-06-12 00:01 | NUR ---
eyes closed. nad. nuclear monitoring technician shows sinus brian hr 58.
--- NOTE | 2020-06-12 01:00 | NUR ---
amb self to sink then around bed to other side w/o o2. radiation monitor & pulse ox probe replaced. sao2 85%. after recovering sao2 94%.
--- NOTE | 2020-06-12 02:00 | NUR ---
resting quietly. resps even & unlabored. no apparent distress. o2 cont.
--- NOTE | 2020-06-12 04:00 | NUR ---
eyes closed. no distress. laying on rt side. manager monitoring shows sinus brian hr 52.
--- NOTE | 2020-06-12 04:45 | NUR ---
lab here. blood drawn.
[2020-06-12 05:27] LABS: ALBUMIN 2.8 g/dL (3.2-5.0); ALKALINE PHOSPHATASE 84 u/l (38-126); ANION GAP 11 (6-22 (CALC)); BILIRUBIN, TOTAL 0.5 mg/dL (0.0-1.4); BUN 23 mg/dL (9-20); BUN/CREATININE RATIO 31 (12-20 (CALC)); CARBON DIOXIDE 27 mmol/l (22-30); CHLORIDE 103 mmol/l (95-108); CREATININE 0.8 mg/dL (0.7-1.3); GFR > 60 ML/MIN (>=60 (CALC)); GFR FOR AFR.AMER. > 60 ML/MIN (>=60 (CALC)); POTASSIUM 4.9 mmol/l (3.5-5.1); SGOT/AST 27 u/l (17-59); SODIUM 136 mmol/l (137-146); TOTAL PROTEIN 6.3 g/dL (6.3-8.2)
--- NOTE | 2020-06-12 06:54 | NUR ---
PT REPORT RECEIVED, PT SLEEPING AT THIS TIME, NO DISTRESS NOTED.
--- NOTE | 2020-06-12 07:58 | NUR ---
PT SITTING UP ON SIDE OF BED EATING BREAKFAST, DENIES ANY COMPLAINT AT THIS TIME
[2020-06-12 08:00] VITALS: BP 124/79
--- NOTE | 2020-06-12 10:13 | NUR ---
ADVISED PT OF TRANSFER TO MED SURG LATER TODAY, PTS FAMILY SENT CLEAN CLOTHES AND SLIPPERS FOR PT WHEN HE IS MOVED. PT ALERT/ORIENTED X3, SATS REMAIN AT 3 VITAL SIGNS STABLE
[2020-06-12 10:39] VITALS: BP 125/75
--- NOTE | 2020-06-12 10:57 | NUR ---
PT RESTING QUIETLY ON STRETCHER, NO COMPLAINTS OF DISCOMFORT AT THIS TIME
[2020-06-12 11:45] VITALS: BP 106/68
--- NOTE | 2020-06-12 12:26 | NUR ---
WAITING FOR BED NUMBER TO TRANSFER PT TO MED SURG, PT SITTING UP IN BED EATING LUNCH. NO DISTRESS OR COMPLAINTS AT THIS TIME. PT REMAINS ALERT/ORIENTED X3, LUNGS CLEAR UPPER AND SLIGHTLY DIMINISHED THROUGHOUT LOWER ASHLEY DEMPSEY. REMAINS IN SINUS RYTHMN , REGULAR, NO ECTOPY. NO EDEMA NOTED, NO COUGH THAT I HAVE HEARD.
[2020-06-12 13:10] VITALS: BP 100/65
--- NOTE | 2020-06-12 13:10 | NUR ---
REPORT WAS RECEIVED FROM EDITH. PATIENT CAME FROM ICU VIA WHEELCHAIR. PATIENT AMBULATED TO BED. CALL LIGHT IN REACH.
--- NOTE | 2020-06-12 13:17 | NUR ---
PT TRANSFERRED TO MED SURG PER WHEEL CHAIR.
--- NOTE | 2020-06-12 16:15 | NUR ---
SCHEME TECHNICIAN SETUP PATIENT FOR A SHOWER. REPORT GIVEN TO MIGDALIA EPPS
[2020-06-12 17:23] VITALS: BP 102/73
--- NOTE | 2020-06-12 18:00 | NUR ---
PT RECEIVED FROM VAZATA @ 1420, RESTING IN BED IN SUPINE POSITION, DENIES DISCOMFORT, TELE MONITOR IN PLACE, O2 @ 2L VIA NC IN PLACE, CALL WHEELER IN REACH.
[2020-06-12 19:00] VITALS: BP 128/68
[2020-06-13 01:00] VITALS: BP 121/69
--- NOTE | 2020-06-13 02:22 | NUR ---
PT IN BED WITH EYES CLOSED. NO S/S OF DISTRESS NOTED. OXGYGEN IN PLACE AT 4LNC WITH O2 SAY 92%. PT DENIES PAIN AND DISCOMFORT. CONTINENT OF B/B AND UP AD LUIS M. CALL LIGHT IS WITHIN REACH AND BED IN LOW POSITION. WILL CONTINUE TO OBSERVE
[2020-06-13 05:00] VITALS: BP 114/62
[2020-06-13 05:33] LABS: HEMATOCRIT 42.3 % (39.0-50.0); HEMOGLOBIN 14.2 g/dl (14.0-18.0); IMMATURE GRANULOCYTES 0.9 % (0.0-5.0); MEAN CORPUSCULAR HGB 32.6 pG CALC (26.0-32.0); MEAN CORPUSCULAR HGB CONC 33.6 g/dL CAL (32.0-36.0); NEUT# 5.39 thou/uL (1.82-7.42); RED BLOOD COUNT 4.36 mill/uL (4.70-6.10)
[2020-06-13 05:54] LABS: ANION GAP 11 (6-22 (CALC)); BUN 34 mg/dL (9-20); BUN/CREATININE RATIO 31 (12-20 (CALC)); CARBON DIOXIDE 26 mmol/l (22-30); CHLORIDE 103 mmol/l (95-108); CREATININE 1.1 mg/dL (0.7-1.3); GFR > 60 ML/MIN (>=60 (CALC)); GFR FOR AFR.AMER. > 60 ML/MIN (>=60 (CALC)); POTASSIUM 4.8 mmol/l (3.5-5.1); SODIUM 134 mmol/l (137-146)
--- NOTE | 2020-06-13 06:31 | NUR ---
PT IN BED WITH EYES CLOSED. NO S/S OF DISTRESS OR DISCOMFORT. RESPIRATION EVEN AND NON LABORED AND DENIES ANY RESPIRATORY DISTRESS. CALL LIGHT WITHIN REACH. WILL CONTINUE TO OBSERVE
--- NOTE | 2020-06-13 07:00 | NUR ---
SHIFT CHANGE REPORT,PT AWAKE ALERT AND ORIENTED RESTING IN BED, NO C/O DISCOMFORT, O2 @ 4L VIA NC IN PLACE, TELE MONITOR IN PLACE, CALL WHEELER IN REACH.
[2020-06-13 07:45] VITALS: BP 102/62
[2020-06-13 10:55] VITALS: BP 95/55
--- NOTE | 2020-06-13 12:00 | NUR ---
RESTING IN BED, ENCOURAGED TO GET OOB AND AMBULATE IN ROOM BUT STATED ROOM TOO COLD SO HED RATHER STAY IN BED. MEDICAL TEAM ROUNDED AND DISCUSSED PLAN OF CARE.
--- NOTE | 2020-06-13 12:00 | NUR ---
TRANSPORTED OFF UNIT TO RADIOLOGY VIA W/C BY STAFF FOR CXR AND BACK TO ROOM, RELAXING IN BED.
[2020-06-13 15:05] VITALS: BP 101/74
[2020-06-13 19:00] VITALS: BP 106/74
--- NOTE | 2020-06-13 20:00 | NUR ---
PT IN BED WATCHING TV WITH THE LIGHTS OFF. PT VOICING CONCERNS ABOUT HOW PAINFULL THE LEVONX SHOT IS IN HIS STOMACH AND WHY HE HAS TO GET THEM TWICE A DAY. EDUCATED HIM ON THE MATTER AND HE VERBALLY STATES HE UNDERSTAND. PT HAS NO COMPLAINT OF PAIN. CALL LIGHT AND BELONGING WITHIN REACH. WILL CONTINUE TO MONITOR
--- NOTE | 2020-06-13 23:41 | NUR ---
PT COMPLAINING OF COUGH AND COUGH MEDICATION HAS BEEN DISCONTINUED OF YESTERDAY. CALLED DR. NEVES FOR RECONTINUATION OF MEDICATION HE SAID YES.
[2020-06-14] VITALS: BP 102/67
--- NOTE | 2020-06-14 | NUR ---
PT IS HAPPY HE WAS ABOUT TO GET HIS COUGH MEDICATION NOW THAT PHARMACY PUT THE NEW ORDER BACK IN. NOW HE WILL BE ABLE TO GO TO SLEEP. COUGH IS NON PRODUCTIVE. WILL CONTINUE TO MONITOR PT. CALL LIGHT WITHIN REACH
[2020-06-14 04:00] VITALS: BP 116/71
--- NOTE | 2020-06-14 07:10 | NUR ---
REPORT RECEIVED; PT RESTING IN BED HIGH FOWLWERS; ALERT AND ORIENTED; MOSTLY YORUBA SPEAKING. RESPIRATIONS EVEN AND UNLABORED ON ROOM AIR; NASAL CANNULA RESTING HIGH ON FOREHEAD; SPO2 92-93%; OXYGEN REMOVED; WILL CONTINUE TO MONITOR ON ROOM AIR. DENIES PAIN. LUNGS ARE CLEAR; DRY, NON PRODUCTIVE COUGH. IV SITE APPEARS HEALTHY AND FLUSHES. POC REVIEWED. PT ENCOURAGED TO VERBALIZE CONCERNS; STATES UNDERSTANDING. SAFETY MEASURES IN PLACE. CALL LIGHT WITHIN REACH.
[2020-06-14 08:30] VITALS: BP 94/60
--- NOTE | 2020-06-14 09:05 | NUR ---
ROBITUSSIN GIVEN FOR DRY COUGH PER PT REQUEST.
--- NOTE | 2020-06-14 10:15 | NUR ---
SPO2 92-94% ON ROOM AIR WHILE RESTING IN BED SEMI FOWLERS. NO REQUESTS OR COMPLAINTS AT THIS TIME.
--- NOTE | 2020-06-14 10:40 | NUR ---
DR. WRIGHT AT [facility] AT BEDSIDE.
[2020-06-14] MEDS ORDERED: DEXAMETHASON6 MG PO (11:02)
[2020-06-14] MEDS ORDERED: PANTOPRAZOLE SO40 M1 PO (11:02)
[2020-06-14 11:30] VITALS: BP 112/75
[2020-06-14] MEDS ORDERED: ROBITUSSIN AC10 ML PO ×2 (12:08→14:06)
--- NOTE | 2020-06-14 13:52 | NUR ---
OXYGEN WALK TEST COMPLETED; SPO2 91-93% ON ROOM AIR WHILE AMBULATING.
--- NOTE | 2020-06-14 14:15 | NUR ---
IV site discontinued, cath intact. No edema , no redness, voices no discomfort.
--- NOTE | 2020-06-14 14:20 | NUR ---
DISCHARGE INSTRUCTIONS EXPLAINED IN [facility] BY CASE MANGEMENT WITH NURSE AT BEDSIDE TO ASSIST WITH ANSWERING MULITPLE QUESTIONS BY PATIENT. PT NOW READING OVER DISCHARGE PAPERS.
--- NOTE | 2020-06-14 15:51 | NUR ---
COUGH MEDICINE PROVIDED PER REQUEST. PT AWAITING FOR MORTGAGE CLOSER.
--- NOTE | 2020-06-14 16:28 | NUR ---
Discharge instructions given. Patient verbalizes understanding of same. Discharged in stable condition via Wheelchair to Home with spouse. All belongings sent with pt.
== END 2020-06-14 16:23 | disposition home or self-care (01) | DRG 177 ==
LOC: ED 00:23 → ED-I 02:46 → ED 03:01 → ED-I 03:02 → ICU 03:02 → MS2 15:49 → ICU 19:54 → MS2 06-12 13:10
PROVIDERS: Emergency Medicine; Internal Medicine; Nurse Practitioner Family; ADMIT Internal Medicine; ATTEND Internal Medicine
PROC: XW033E5 Introduction of Remdesivir Anti-infective into Peripheral Vein, Percutaneous Approach, New Technology Group 5 (ICD-10-PCS; principal; 2020-06-06)
DX: U07.1 COVID-19 (principal); J12.82 Pneumonia due to coronavirus disease 2019; J96.01 Acute respiratory failure with hypoxia; E87.1 Hypo-osmolality and hyponatremia; R53.1 Weakness
CPT/HCPCS: J1650

== ENCOUNTER 2022-06-08 14:21 | Emergency (ER) | payer OTHER ==
[~2022-06-08] VITALS: Ht 172.7 cm; Wt 100.0 kg
[~2022-06-08 14:21] MED LIST changes: +DEXAMETHASON6 MG PO; +PANTOPRAZOLE SO40 M1 PO; +ROBITUSSIN AC10 ML PO
[2022-06-08 15:00] VITALS: BP 174/126
[2022-06-08 15:04] LABS: BASO% 0.3 % (0-3); EOS% 0.6 % (0-8); HEMATOCRIT 43.9 % (39.0-50.0); HEMOGLOBIN 15.2 g/dl (14.0-18.0); IMMATURE GRANULOCYTES 0.4 % (0.0-5.0); LYMPH% 13.3 % (15-41); MEAN CELL VOLUME 98.4 fL CALC (80.0-100.0); MEAN CORPUSCULAR HGB 34.1 pG CALC (26.0-32.0); MEAN CORPUSCULAR HGB CONC 34.6 g/dL CAL (32.0-36.0); MONO% 3.6 % (2-13); NEUT# 7.96 thou/uL (1.82-7.42); NEUT% 81.8 % (42-76); RED BLOOD COUNT 4.46 mill/uL (4.70-6.10); RED CELL DISTRI WIDTH 12.8 % (11.5-15.5)
[2022-06-08 15:23] LABS: ALBUMIN 4.4 g/dL (3.2-5.0); ALKALINE PHOSPHATASE 89 u/l (38-126); ANION GAP 13 (6-22 (CALC)); BILIRUBIN, TOTAL 0.4 mg/dL (0.2-1.3); BUN 14 mg/dL (8-23); BUN/CREATININE RATIO 13 (12-20 (CALC)); CARBON DIOXIDE 26 mmol/l (22-30); CHLORIDE 104 mmol/l (95-108); CREATININE 1.1 mg/dL (0.7-1.3); GFR FOR AFR.AMER. > 60 ML/MIN (>=60 (CALC)); GFR OTHER RACES > 60 ML/MIN (>=60 (CALC)); POTASSIUM 4.3 mmol/l (3.5-5.1); SGOT/AST 37 u/l (19-48); SODIUM 139 mmol/l (137-146)
[2022-06-08 15:31] VITALS: BP 146/97
[2022-06-08] MEDS ORDERED: ULTRAM50 MG PO (17:07)
[2022-06-08 17:52] VITALS: BP 146/97
== END 2022-06-08 18:07 | disposition home or self-care (01) | DRG 563 ==
LOC: ED 14:21
PROVIDERS: Emergency Medicine
PROC: 2W3BXYZ Immobilization of Left Upper Arm using Other Device (ICD-10-PCS; principal; 2022-06-08)
DX: S43.402A Unspecified sprain of left shoulder joint, initial encounter (principal); S13.9XXA Sprain of joints and ligaments of unspecified parts of neck, initial encounter; W17.89XA Other fall from one level to another, initial encounter; Y92.89 Other specified places as the place of occurrence of the external cause; Y99.0 Civilian activity done for income or pay
CPT/HCPCS: Q9967